=== PATIENT | male | born 1970 | race Caucasian/White ===

== ENCOUNTER → 2018-09-28 | Outpatient (CLI) | payer SELFPAY ==
--- NOTE | 2018-09-28 12:36 | Diagnostic Imaging Report ---
INDICATION: PERSISTANT COUGH COMPARISON: None. FINDINGS: Frontal and lateral views of the chest demonstrate normal heart size and pulmonary vascularity. The lungs are clear. There are no signs of infiltrate, pleural effusions or pneumothoraces. The visualized osseous structures show no acute abnormalities. IMPRESSION: 1. No acute process. No signs of infiltrates, effusions or pneumothoraces. Dictated by: Dictated on workstation # [id number]
== END ==
LOC: RAD 11:30
PROVIDERS: ATTEND Family Medicine
DX: R05 Cough (principal)
CPT/HCPCS: 71046

== ENCOUNTER → 2023-01-02 | Outpatient (CLI) | payer OTHER ==
--- NOTE | 2023-01-02 17:40 | Diagnostic Imaging Report ---
EXAMINATION: Left elbow radiographs, 3 views. COMPARISON: None. HISTORY: 52-year-old male, fall. Left elbow pain and loss of range of motion. FINDINGS: There is no identified acute fracture. Elbow is not dislocated. There is no elbow joint effusion. IMPRESSION: 1. Unremarkable radiographs of the left elbow. Dictated by: Dictated on workstation # [id number]
== END ==
LOC: RAD 08:42
PROVIDERS: ATTEND Family Medicine
DX: M25.522 Pain in left elbow (principal)
CPT/HCPCS: 73080